=== PATIENT | male | born 1985 | race Hispanic/Latino ===

== ENCOUNTER → 2018-01-22 | Outpatient (CLI) | payer MEDICAID ==
[~2018-01-22] MED LIST: BACL10TA PO; BUSP5TAB3 PO; CARAL PO; ESOM40CA PO; FENO134C PO; MELA10TA3 PO; METO-408 PO; METOPROLOL PO; OXCA300O4 PO; QUET25TA PO; SEROQUEL PO
== END | disposition home or self-care (01) ==
LOC: OIH 16:41
PROVIDERS: ATTEND Family Medicine
DX: M41.84 Other forms of scoliosis, thoracic region (principal)
CPT/HCPCS: 71046

== ENCOUNTER 2018-02-13 06:09 | Day surgery (SDC) | payer MEDICAID ==
[~2018-02-13 06:09] MED LIST changes: -METO-408 PO; -QUET25TA PO
[2018-02-13] MEDS ORDERED: SODIUM CHLORIDE 0.9% 1000ML 1,000 ML IV ONE (06:16)
[2018-02-13 06:40] VITALS: BP 119/77
[2018-02-13] MEDS ORDERED: METO-408 PO (07:00)
[2018-02-13] MEDS ORDERED: QUET25TA PO (07:00)
== END 2018-02-13 09:00 | disposition home or self-care (01) ==
LOC: DAH 06:09 → ENDO 06:09
PROVIDERS: ATTEND Internal Medicine
DX: K29.50 Unspecified chronic gastritis without bleeding (principal); K31.7 Polyp of stomach and duodenum; K22.70 Barrett's esophagus without dysplasia
CPT/HCPCS: 43239; 43251; 88305; 88312; 88342; A4606; J7030

== ENCOUNTER → 2018-03-27 | Outpatient (CLI) | payer MEDICAID ==
[~2018-03-27] MED LIST changes: +METO-408 PO; -METOPROLOL PO; +QUET25TA PO; -SEROQUEL PO
== END | disposition home or self-care (01) ==
LOC: OIH 14:35
PROVIDERS: ATTEND Family Medicine
DX: R05 Cough (principal); R09.89 Other specified symptoms and signs involving the circulatory and respiratory systems
CPT/HCPCS: 71046

== ENCOUNTER → 2019-04-16 | Outpatient (CLI) | payer MEDICAID | END | disposition home or self-care (01) | LOC: SHCH 10:56 | PROVIDERS: ATTEND Internal Medicine Cardiovascular Disease | DX: I51.7 Cardiomegaly (principal) | CPT/HCPCS: 93306 ==

== ENCOUNTER → 2019-09-15 | Outpatient (CLI) | payer MEDICAID | END | disposition home or self-care (01) | LOC: OIH 09:57 | PROVIDERS: ATTEND Family Medicine | DX: R91.8 Other nonspecific abnormal finding of lung field (principal); I51.7 Cardiomegaly; J18.0 Bronchopneumonia, unspecified organism; J06.9 Acute upper respiratory infection, unspecified | CPT/HCPCS: 71046 ==

== ENCOUNTER → 2019-12-07 | Outpatient (CLI) | payer MEDICAID ==
[~2019-12-07] MED LIST changes: -BUSP5TAB3 PO; -FENO134C PO; +FENO145T26 PO; +FERS325 PO; +LATA7.5D OP; +MELA10TA PO; -MELA10TA3 PO; -METO-408 PO; +METO50TA18 PO; -OXCA300O4 PO; +PARO10TA87 PO; -QUET25TA PO; +TRAZ-185 PO
== END | disposition home or self-care (01) ==
LOC: OIH 11:19
PROVIDERS: ATTEND Internal Medicine
DX: I51.7 Cardiomegaly (principal); M40.294 Other kyphosis, thoracic region
CPT/HCPCS: 71046

== ENCOUNTER 2020-04-05 17:21 | Emergency (ER) | payer MEDICAID ==
[2020-04-05] MEDS ORDERED: SODIUM CHLORIDE 0.9% 1000ML 1,000 ML IV ONE (18:13)
[2020-04-05] MEDS ORDERED: ONDANSETRON HCL 4 MG/2 ML VIAL ONE (19:57)
[2020-04-05] MEDS ORDERED: IOHEXOL-350 75 ML VIAL IV ONE (21:01)
[2020-04-05] MEDS ORDERED: OSELTAMIVIR PHOSPHATE 75 MG CAP ONE (22:55)
== END 2020-04-06 00:05 | disposition home or self-care (01) ==
LOC: EDH 17:21
DX: J11.1 Influenza due to unidentified influenza virus with other respiratory manifestations (principal); E86.0 Dehydration; Z20.828 Contact with and (suspected) exposure to other viral communicable diseases; Z88.1 Allergy status to other antibiotic agents; Z88.2 Allergy status to sulfonamides; Z98.890 Other specified postprocedural states
CPT/HCPCS: 36415; 71045; 71260; 74177; 80053; 81001; 82550; 83605; 83690; 83880; 84484; 85025; 87804 ×2; 87880; 93005; 96374; 96375; 99285; C9113; J2405; J7030; Q9967; U0003

== ENCOUNTER 2021-01-14 05:22 | Inpatient (IN) | payer MEDICAID ==
[~2021-01-14] VITALS: Ht 152.4 cm; Wt 51.0 kg
[2021-01-14] VITALS (10 sets, daily range): BP systolic 129–212; BP diastolic 56–125
[2021-01-14] MEDS ORDERED: ACETAMINOPHEN 650 MG SUPPOSITORY RC ONE (05:52)
[2021-01-14] MEDS ORDERED: SOLU-MEDROL 40MG VIAL ONE ×3 (05:52→09:02)
[2021-01-14] MEDS ORDERED: LORAZEPAM 2 MG/ML 1 ML VIAL ONE (05:53)
[2021-01-14 05:59] LABS: BASOPHILS % (AUTO) 0.2 % (0.0-5.0); EOSINOPHILS % (AUTO) 0.6 % (0.0-8.0); HEMATOCRIT 37.4 % (42-54); LYMPHOCYTES % (AUTO) 38.8 % (21.0-51.0); MEAN CORPUSCULAR HEMOGLOBIN 26.4 pg (27.0-33.0); MEAN CORPUSCULAR HGB CONC 30.7 g/dL (32.0-36.0); MONOCYTES % (AUTO) 5.2 % (3.0-13.0); NEUTROPHILS % (AUTO) 54.9 % (40.0-77.0); PLATELET COUNT (AUTO) 185 K/uL (130-400); RED BLOOD CELL COUNT(AUTO) 4.35 MIL/uL (4.50-6.20); RED CELL DISTRIBUTION WIDTH 13.3 % (11.0-15.5); WHITE BLOOD COUNT (AUTO) 6.3 K/uL (4.8-10.8)
[2021-01-14 06:11] LABS: CREATININE 0.9 mg/dL (0.5-1.5); POTASSIUM 4.1 mmol/L (3.5-5.1)
[2021-01-14] MEDS ORDERED: KETAMINE 50MG/ML SYRINGE 50 MG/ML DISP.SYRIN IV ONE (06:15)
[2021-01-14 06:16] LABS: ALBUMIN 3.8 g/dL (3.5-5.0); BILIRUBIN,TOTAL 0.4 mg/dL (0.2-1.0); TOTAL PROTEIN, SERUM 7.7 g/dL (6.0-8.3)
[2021-01-14] MEDS ORDERED: CEFTRIAXONE 1G VIAL ONE (06:20)
[2021-01-14] MEDS ORDERED: IPRATROPIUM/ALBUTEROL SULFATE 3 ML SOLUTION IH ONE ×2 (06:21→11:05)
[2021-01-14 06:34] LABS: ABG BASE EXCESS 1.4 mmol/L (-2.0-3.0); ABG HCO3 29.6 mmol/L (21.0-28.0); ABG OXYGEN SATURATION 91.5 % (95.0-99.0); ABG PCO2 62 mmHg (35-48)
[2021-01-14] MEDS ORDERED: ALBUTEROL 0.083% 2.5 MG/3 ML INH IH PRN (07:45)
[2021-01-14] MEDS ORDERED: IPRATROPIUM 0.5 MG/2.5 ML INH IH PRN (07:45)
[2021-01-14] MEDS: ZOSYN 3.375GM+NS 50ML 50 ML IV SCH ×3 (08:37→21:07)
[2021-01-14] MEDS ORDERED: ZOSYN 3.375GM+NS 50ML 50 ML IV ONE (09:03)
[2021-01-14] MEDS ORDERED: ACETAMINOPHEN 325 MG TAB PO PRN (09:45)
[2021-01-14] MEDS ORDERED: ACETAMINOPHEN 650 MG SUPPOSITORY RC PRN (09:45)
[2021-01-14] MEDS ORDERED: ONDANSETRON 4MG INJ IVP PRN (09:45)
[2021-01-14] MEDS: SOLU-MEDROL 40MG VIAL IVP SCH ×2 (10:00→18:00)
[2021-01-14] MEDS ORDERED: VANCOMYCIN PROTOCOL PER PHARMACY IV SCH (10:00)
[2021-01-14] MEDS ORDERED: VANCOMYCIN 1G/250ML KIT 250 ML IV SCH (10:00)
[2021-01-14 10:03] LABS: PROTHROMBIN TIME 10.9 SEC (9.6-11.6)
[2021-01-14 10:32] LABS: ABG BASE EXCESS 3.5 mmol/L (-2.0-3.0); ABG HCO3 29.8 mmol/L (21.0-28.0); ABG OXYGEN SATURATION 98.9 % (95.0-99.0); ABG PCO2 52 mmHg (35-48)
[2021-01-14] MEDS: IPRATROPIUM/ALBUTEROL SULFATE 3 ML SOLUTION IH SCH ×2 (12:00→18:43)
[2021-01-14] MEDS: VANCOMYCIN 1G/250ML KIT 250 ML IV SCH (18:00)
[2021-01-14] MEDS: LABETALOL 20MG SYG IV SCH ×2 (20:45→22:45)
[2021-01-14] MEDS: FAMOTIDINE 20MG VIAL IV SCH (20:52)
[2021-01-14] MEDS: MELATONIN 10 MG PO SCH (21:00)
[2021-01-14] MEDS: LATANOPROST 2.5 ML DROPS OP SCH (21:00)
[2021-01-14] MEDS: BACLOFEN 10 MG TABLET PO SCH (21:07)
[2021-01-14] MEDS: TRAZODONE HCL 50 MG TAB PO SCH (21:08)
[2021-01-14] MEDS: PAROXETINE HCL 20 MG TABLET PO SCH (21:09)
[2021-01-14] MEDS: METOPROLOL TARTRATE 50 MG TAB PO SCH (21:09)
[2021-01-14 21:14] LABS: ABG BASE EXCESS 4.4 mmol/L (-2.0-3.0); ABG HCO3 31.3 mmol/L (21.0-28.0); ABG OXYGEN SATURATION 99.2 % (95.0-99.0); ABG PCO2 56 mmHg (35-48)
[2021-01-14] MEDS: DEXMEDETOMIDINE HCL 400 MCG in 0.9%NACL 100ML 100 ML IV SCH (21:32)
[2021-01-14] MEDS ORDERED: NICARDIPINE 25MG INJ 25 MG in 0.9% NACL 250ML 240 ML IV SCH (23:45)
[2021-01-15] VITALS (36 sets, daily range): BP systolic 99–224; BP diastolic 56–102
[2021-01-15] MEDS: LABETALOL 20MG SYG IV SCH ×12 (01:14→23:01)
[2021-01-15] MEDS: SOLU-MEDROL 40MG VIAL IVP SCH ×3 (02:21→17:21)
[2021-01-15 03:43] LABS: HEMATOCRIT 34.1 % (42-54); LYMPHOCYTES % (AUTO) 16.7 % (21.0-51.0); MEAN CORPUSCULAR HEMOGLOBIN 26.9 pg (27.0-33.0); MEAN CORPUSCULAR HGB CONC 32.3 g/dL (32.0-36.0); MEAN CORPUSCULAR VOLUME 83.4 fL (79-99); MONOCYTES % (AUTO) 9.3 % (3.0-13.0); NEUTROPHILS % (AUTO) 73.8 % (40.0-77.0); PLATELET COUNT (AUTO) 149 K/uL (130-400); RED BLOOD CELL COUNT(AUTO) 4.09 MIL/uL (4.50-6.20); RED CELL DISTRIBUTION WIDTH 13.3 % (11.0-15.5); WHITE BLOOD COUNT (AUTO) 4.2 K/uL (4.8-10.8)
[2021-01-15 04:11] LABS: CREATININE 0.6 mg/dL (0.5-1.5); MAGNESIUM 2.4 mg/dL (1.80-2.40); PHOSPHORUS 3.8 mg/dL (2.5-4.9)
[2021-01-15] MEDS: DEXMEDETOMIDINE HCL 400 MCG in 0.9%NACL 100ML 100 ML IV SCH ×3 (05:03→16:20)
[2021-01-15] MEDS ORDERED: NICARDIPINE 25MG INJ IV ONE (05:06)
[2021-01-15] MEDS ORDERED: 0.9% NACL 250ML 250 ML IV ONE (05:08)
[2021-01-15] MEDS: ZOSYN 3.375GM+NS 50ML 50 ML IV SCH ×3 (05:42→20:55)
[2021-01-15] MEDS: IPRATROPIUM/ALBUTEROL SULFATE 3 ML SOLUTION IH SCH ×4 (06:58→18:49)
[2021-01-15] MEDS: FAMOTIDINE 20MG VIAL IV SCH ×2 (07:56→20:51)
[2021-01-15] MEDS: BACLOFEN 10 MG TABLET PO SCH ×2 (07:56→20:57)
[2021-01-15] MEDS: METOPROLOL TARTRATE 50 MG TAB PO SCH ×2 (07:56→20:56)
[2021-01-15] MEDS ORDERED: CEFTRIAXONE 1G VIAL IV SCH (09:00)
[2021-01-15] MEDS: VANCOMYCIN 1G/250ML KIT 250 ML IV SCH (17:21)
[2021-01-15] MEDS: PAROXETINE HCL 20 MG TABLET PO SCH (20:56)
[2021-01-15] MEDS: TRAZODONE HCL 50 MG TAB PO SCH (20:57)
[2021-01-15] MEDS: MELATONIN 10 MG PO SCH (21:00)
[2021-01-15] MEDS: LATANOPROST 2.5 ML DROPS OP SCH (21:13)
[2021-01-16] VITALS (37 sets, daily range): BP systolic 101–175; BP diastolic 47–92
[2021-01-16] MEDS: LABETALOL 20MG SYG IV SCH ×12 (00:41→22:16)
[2021-01-16] MEDS: IPRATROPIUM/ALBUTEROL SULFATE 3 ML SOLUTION IH SCH ×5 (00:48→23:18)
[2021-01-16] MEDS: SOLU-MEDROL 40MG VIAL IVP SCH ×3 (01:43→17:14)
[2021-01-16 02:04] LABS: ABG BASE EXCESS 1.6 mmol/L (-2.0-3.0); ABG OXYGEN SATURATION 93.9 % (95.0-99.0); ABG PCO2 45 mmHg (35-48)
[2021-01-16] MEDS: DEXMEDETOMIDINE HCL 400 MCG in 0.9%NACL 100ML 100 ML IV SCH (02:07)
[2021-01-16] MEDS: ZOSYN 3.375GM+NS 50ML 50 ML IV SCH ×3 (05:45→22:15)
[2021-01-16] MEDS: FAMOTIDINE 20MG VIAL IV SCH ×2 (08:25→22:15)
[2021-01-16] MEDS: METOPROLOL TARTRATE 50 MG TAB PO SCH ×2 (08:26→22:15)
[2021-01-16] MEDS: BACLOFEN 10 MG TABLET PO SCH (08:26)
[2021-01-16] MEDS: VANCOMYCIN 1G/250ML KIT 250 ML IV SCH (17:14)
[2021-01-16] MEDS: MELATONIN 10 MG PO SCH (21:00)
[2021-01-16] MEDS: LATANOPROST 2.5 ML DROPS OP SCH (22:15)
[2021-01-16] MEDS: PAROXETINE HCL 20 MG TABLET PO SCH (22:15)
[2021-01-16] MEDS: TRAZODONE HCL 50 MG TAB PO SCH (22:15)
[2021-01-17] VITALS (24 sets, daily range): BP systolic 106–206; BP diastolic 66–109
[2021-01-17] MEDS: LABETALOL 20MG SYG IV SCH ×9 (02:45→16:45)
[2021-01-17] MEDS: ZOSYN 3.375GM+NS 50ML 50 ML IV SCH ×2 (04:57→12:37)
[2021-01-17] MEDS: SOLU-MEDROL 40MG VIAL IVP SCH ×2 (04:58→09:50)
[2021-01-17 05:52] LABS: HEMATOCRIT 33.5 % (42-54); MEAN CORPUSCULAR HEMOGLOBIN 27.1 pg (27.0-33.0); MEAN CORPUSCULAR HGB CONC 32.5 g/dL (32.0-36.0); MEAN CORPUSCULAR VOLUME 83.3 fL (79-99); RED BLOOD CELL COUNT(AUTO) 4.02 MIL/uL (4.50-6.20); RED CELL DISTRIBUTION WIDTH 13.6 % (11.0-15.5); WHITE BLOOD COUNT (AUTO) 4.7 K/uL (4.8-10.8)
[2021-01-17 06:13] LABS: CREATININE 0.7 mg/dL (0.5-1.5); POTASSIUM 4.1 mmol/L (3.5-5.1)
[2021-01-17] MEDS: FAMOTIDINE 20MG VIAL IV SCH (08:42)
[2021-01-17] MEDS: METOPROLOL TARTRATE 50 MG TAB PO SCH (08:42)
[2021-01-17] MEDS: IPRATROPIUM/ALBUTEROL SULFATE 3 ML SOLUTION IH SCH ×2 (08:53→13:34)
== END 2021-01-17 17:00 | disposition home or self-care (01) | DRG 137 ==
LOC: EDH 05:22 → EDHIP 05:23 → 2CH 17:21
PROVIDERS: ADMIT Internal Medicine Critical Care Medicine; ATTEND Internal Medicine Critical Care Medicine
DX: J69.0 Pneumonitis due to inhalation of food and vomit (principal); F19.90 Other psychoactive substance use, unspecified, uncomplicated; T50.B95A Adverse effect of other viral vaccines, initial encounter; F79 Unspecified intellectual disabilities; H40.9 Unspecified glaucoma; D64.9 Anemia, unspecified; K22.70 Barrett's esophagus without dysplasia; S05.00XA Injury of conjunctiva and corneal abrasion without foreign body, unspecified eye, initial encounter; Z20.822 Contact with and (suspected) exposure to COVID-19; Z74.01 Bed confinement status; Z88.2 Allergy status to sulfonamides; Z88.8 Allergy status to other drugs, medicaments and biological substances; Y92.89 Other specified places as the place of occurrence of the external cause; J96.02 Acute respiratory failure with hypercapnia; J96.01 Acute respiratory failure with hypoxia
CPT/HCPCS: 36415; 36600; 71045; 71250; 74176; 80048; 80053; 80202; 82803; 83605; 83735; 84100; 85025; 85027; 85610; 87040; 87426; 94640; 94664; 94667; 94668; 94760; 99291; G0378; J0696; J2060; J2543; J2920; J3370; J3490; J7050; U0003